=== PATIENT | male | born 1945 | race Caucasian/White ===

== ENCOUNTER → 2019-04-11 | Outpatient (CLI) | payer MEDICARE, OTHER ==
[~2019-04-11] MED LIST: AMIT25TA PO; ASPI-496 PO; MULT-132 PO; OMNIPAQUE 350 MG/ML, 75ML BOTTLE ONE; TYLENOL PM PO
== END | disposition home or self-care (01) ==
LOC: CFH 15:22
PROVIDERS: ATTEND Internal Medicine Hematology & Oncology
DX: J84.10 Pulmonary fibrosis, unspecified (principal); J92.9 Pleural plaque without asbestos; C18.0 Malignant neoplasm of cecum
CPT/HCPCS: 71260; Q9967

== ENCOUNTER 2019-04-12 06:49 | Day surgery (SDC) | payer MEDICARE, OTHER ==
[~2019-04-12] VITALS: Ht 175.3 cm; Wt 84.1 kg
[2019-04-12] MEDS ORDERED: SODIUM CHLORIDE 0.9% 1,000 ML IV SCH (07:17)
[2019-04-12] MEDS ORDERED: AMIT25TA PO (07:20)
[2019-04-12] MEDS ORDERED: TYLENOL PM PO (07:20)
[2019-04-12] MEDS ORDERED: ASPI-496 PO (07:20)
[2019-04-12] MEDS ORDERED: MULT-132 PO (07:20)
[2019-04-12] MEDS ORDERED: VANCOMYCIN PMX 1GM/200ML 200 ML IV ONE (07:30)
[2019-04-12 07:41] VITALS: BP 130/77
[2019-04-12] MEDS ORDERED: LIDOCAINE 1%, 20ML ONE (08:16)
[2019-04-12] MEDS ORDERED: FENTANYL PF 100 MCG/2ML ONE ×2 (08:19→08:20)
[2019-04-12] MEDS ORDERED: NALOXONE 1 MG/ML, 2ML ONE (08:20)
[2019-04-12] MEDS ORDERED: MIDAZOLAM 1 MG/ML, 5ML ONE (08:20)
[2019-04-12] MEDS ORDERED: FLUMAZENIL 0.1 MG/1 ML, 5ML ONE (08:20)
== END 2019-04-12 11:40 | disposition home or self-care (01) ==
LOC: OUT 06:49
PROVIDERS: ATTEND Internal Medicine Hematology & Oncology
DX: C18.0 Malignant neoplasm of cecum (principal); S14.3XXS Injury of brachial plexus, sequela; G81.91 Hemiplegia, unspecified affecting right dominant side; J45.909 Unspecified asthma, uncomplicated; Z79.82 Long term (current) use of aspirin; Z79.899 Other long term (current) drug therapy; Z87.891 Personal history of nicotine dependence; Z88.0 Allergy status to penicillin; Z90.49 Acquired absence of other specified parts of digestive tract; Z80.0 Family history of malignant neoplasm of digestive organs; Z80.3 Family history of malignant neoplasm of breast; V89.2XXS Person injured in unspecified motor-vehicle accident, traffic, sequela
CPT/HCPCS: 36561; 76937; 77001; 99156; 99157; C1788; J1642; J2250; J3010; J3370; J7030; J2310

== ENCOUNTER 2019-05-20 15:08 | Outpatient (CLI) | payer MEDICARE, OTHER ==
[~2019-05-20 15:08] MED LIST changes: -OMNIPAQUE 350 MG/ML, 75ML BOTTLE ONE
== END 2019-05-20 23:59 | disposition home or self-care (01) ==
LOC: RAD 15:08
PROVIDERS: ATTEND Internal Medicine Hematology & Oncology
DX: C18.0 Malignant neoplasm of cecum (principal); M25.511 Pain in right shoulder

== ENCOUNTER → 2019-11-07 | Outpatient (CLI) | payer MEDICARE, OTHER | END | disposition home or self-care (01) | LOC: RAD 10:49 | PROVIDERS: ATTEND Internal Medicine Hematology & Oncology | DX: C18.0 Malignant neoplasm of cecum (principal) | CPT/HCPCS: 78306; A9503 ==

== ENCOUNTER 2019-12-02 09:00 | Day surgery (SDC) | payer MEDICARE, OTHER ==
[~2019-12-02] VITALS: Ht 175.3 cm; Wt 84.0 kg
[2019-12-02 09:34] VITALS: BP 138/73
[2019-12-02] MEDS ORDERED: SODIUM CHLORIDE 0.9% 1,000 ML IV SCH (10:00)
[2019-12-02] MEDS ORDERED: LIDOCAINE 1%, 20ML ONE (10:39)
[2019-12-02] MEDS ORDERED: MIDAZOLAM 1 MG/ML, 5ML ONE (11:13)
[2019-12-02] MEDS ORDERED: FENTANYL PF 100 MCG/2ML ONE (11:13)
[2019-12-02] MEDS ORDERED: FLUMAZENIL 0.1 MG/1 ML, 5ML ONE (11:13)
[2019-12-02] MEDS ORDERED: NALOXONE 1 MG/ML, 2ML ONE (11:14)
== END 2019-12-02 13:20 | disposition home or self-care (01) ==
LOC: OUT 09:00 → EDSTATUS 11:00 → OUT 13:20
PROVIDERS: ATTEND Internal Medicine Hematology & Oncology
DX: Z45.2 Encounter for adjustment and management of vascular access device (principal); C18.0 Malignant neoplasm of cecum; Z88.0 Allergy status to penicillin; Z79.899 Other long term (current) drug therapy; Z79.82 Long term (current) use of aspirin; Z98.890 Other specified postprocedural states
CPT/HCPCS: 36590; 99156; 99157; J2250; J7030; 77001; J3010; J2310